=== PATIENT | female | born 1940 | race Caucasian/White ===

== ENCOUNTER 2020-07-22 12:39 | Outpatient (RCR) | payer MEDICARE, SELFPAY | END 2020-08-04 23:59 | disposition home or self-care (01) | LOC: SOT 12:39 | PROVIDERS: PCP Family Medicine; Referring Provider Physician Assistant; Visit Provider Physician Assistant | DX: S62.612D Displaced fracture of proximal phalanx of right middle finger, subsequent encounter for fracture with routine healing (principal) | CPT/HCPCS: 97167 ==

== ENCOUNTER 2020-08-05 06:00 | Outpatient (RCR) | payer MEDICARE, SELFPAY | END 2020-09-04 23:59 | disposition home or self-care (01) | LOC: SOT 06:00 | PROVIDERS: PCP Family Medicine; Referring Provider Physician Assistant; Visit Provider Physician Assistant | DX: S62.612D Displaced fracture of proximal phalanx of right middle finger, subsequent encounter for fracture with routine healing (principal) | CPT/HCPCS: 97110; L3906 ==

== ENCOUNTER 2020-09-05 06:00 | Outpatient (RCR) | payer MEDICARE, SELFPAY | END 2020-10-04 23:59 | disposition home or self-care (01) | LOC: SOT 06:00 | PROVIDERS: PCP Family Medicine; Visit Provider Physician Assistant | DX: S62.612D Displaced fracture of proximal phalanx of right middle finger, subsequent encounter for fracture with routine healing (principal) | CPT/HCPCS: 97110 ==

== ENCOUNTER 2020-10-05 06:00 | Outpatient (RCR) | payer MEDICARE, SELFPAY | END 2020-10-19 23:00 | disposition home or self-care (01) | LOC: SOT 06:00 | PROVIDERS: PCP Family Medicine; Visit Provider Physician Assistant | DX: Z47.89 Encounter for other orthopedic aftercare (principal); S62.612D Displaced fracture of proximal phalanx of right middle finger, subsequent encounter for fracture with routine healing | CPT/HCPCS: 97110 ==

== ENCOUNTER 2021-02-07 06:00 | Outpatient (RCR) | payer MEDICARE, SELFPAY | END 2021-03-04 23:59 | disposition home or self-care (01) | LOC: SOT 06:00 | PROVIDERS: PCP Family Medicine; Referring Provider Orthopaedic Surgery; Visit Provider Orthopaedic Surgery | DX: S62.612D Displaced fracture of proximal phalanx of right middle finger, subsequent encounter for fracture with routine healing (principal) | CPT/HCPCS: 97110; 97167; 97530 ==

== ENCOUNTER 2021-03-05 06:00 | Outpatient (RCR) | payer MEDICARE, SELFPAY | END 2021-03-10 23:00 | disposition home or self-care (01) | LOC: SOT 06:00 | PROVIDERS: PCP Family Medicine; Referring Provider Orthopaedic Surgery; Visit Provider Orthopaedic Surgery | DX: S62.612D Displaced fracture of proximal phalanx of right middle finger, subsequent encounter for fracture with routine healing (principal); X58.XXXD Exposure to other specified factors, subsequent encounter | CPT/HCPCS: 97110 ==